=== PATIENT | male | born 1975 | race Caucasian/White ===

== ENCOUNTER 2017-01-27 13:53 | Emergency (ER) | payer MEDICAID ==
[~2017-01-27] VITALS: Ht 165.1 cm; Wt 90.3 kg
[2017-01-27 14:00] VITALS: BP 160/87
== END 2017-01-27 14:42 | disposition home or self-care (01) ==
LOC: ED 14:36
DX: M75.22 Bicipital tendinitis, left shoulder (principal); G89.11 Acute pain due to trauma; I10 Essential (primary) hypertension; E78.5 Hyperlipidemia, unspecified; X58.XXXA Exposure to other specified factors, initial encounter; Y93.89 Activity, other specified; Y92.89 Other specified places as the place of occurrence of the external cause; Y99.8 Other external cause status
CPT/HCPCS: 99283

== ENCOUNTER 2017-02-17 14:08 | Emergency (ER) | payer BC, MEDICAID ==
[~2017-02-17] VITALS: Ht 167.6 cm; Wt 84.0 kg
[2017-02-17 14:09] VITALS: BP 126/83
[2017-02-17] MEDS ORDERED: CELE100C PO (14:27)
[2017-02-17] MEDS ORDERED: CARISOPRODOL 350 MG TABLET PO SCH (15:00)
[2017-02-17] MEDS ORDERED: KETOROLAC 30 MG/1 ML IM ONE (15:00)
[2017-02-17] MEDS ORDERED: KETOROLAC 30 MG/1 ML ONE (15:07)
== END 2017-02-17 16:54 | disposition home or self-care (01) ==
LOC: ED 14:49
DX: M25.512 Pain in left shoulder (principal); M54.5 Low back pain; E78.5 Hyperlipidemia, unspecified; I10 Essential (primary) hypertension; W18.39XA Other fall on same level, initial encounter; Y93.89 Activity, other specified; Y99.8 Other external cause status; Y92.009 Unspecified place in unspecified non-institutional (private) residence as the place of occurrence of the external cause
CPT/HCPCS: 73030; 96372; 99284; J1885

== ENCOUNTER 2017-10-14 13:14 | Emergency (ER) | payer BC, MEDICAID ==
[~2017-10-14] VITALS: Ht 165.1 cm; Wt 92.7 kg
[~2017-10-14 13:14] MED LIST: CELE100C PO
[2017-10-14 13:16] VITALS: BP 143/87
[2017-10-14] MEDS ORDERED: IRBE1TAB37 PO (13:56)
[2017-10-14] MEDS ORDERED: MELO15TA24 PO (13:56)
[2017-10-14] MEDS ORDERED: HYDR-882 PO (13:56)
[2017-10-14] MEDS ORDERED: ATOR-2 PO (13:56)
[2017-10-14] MEDS ORDERED: DULO30CA2 PO (13:56)
[2017-10-14] MEDS ORDERED: GABA300C10 PO (13:56)
[2017-10-14] MEDS ORDERED: HYDROcodone/APAP 5/325 TABLET PO ONE ×2 (14:00→15:30)
[2017-10-14] MEDS ORDERED: HYDROcodone/APAP 5/325 TABLET ONE ×2 (14:07→15:02)
== END 2017-10-14 15:08 | disposition home or self-care (01) ==
LOC: ED 14:00
DX: S60.212A Contusion of left wrist, initial encounter (principal); E78.5 Hyperlipidemia, unspecified; I10 Essential (primary) hypertension; F17.210 Nicotine dependence, cigarettes, uncomplicated; W22.8XXA Striking against or struck by other objects, initial encounter; Y93.89 Activity, other specified; Y99.8 Other external cause status; Y92.89 Other specified places as the place of occurrence of the external cause
CPT/HCPCS: 29125; 99284

== ENCOUNTER 2020-03-05 12:32 | Outpatient (CLI) | payer BC, MEDICAID ==
[~2020-03-05 12:32] MED LIST changes: +ATOR-2 PO; +DULO30CA2 PO; +GABA300C10 PO; +HYDR-3653 PO; +IRBE1TAB37 PO; +MELO15TA24 PO
[2020-03-05] MEDS ORDERED: GADOTERATE 2.5 MMOL/5 ML VIAL ONE (15:00)
[2020-03-05] MEDS ORDERED: OMNIPAQUE 300 MG/ML, 10ML VIAL ONE (15:00)
[2020-03-05] MEDS ORDERED: ROPivacaine/PF 0.2%, 10 ML ONE (15:07)
[2020-03-05] MEDS ORDERED: LIDOCAINE-MPF 1%, 5ML ONE (15:07)
== END 2020-03-05 23:59 | disposition home or self-care (01) ==
LOC: RAD 12:32
PROVIDERS: ATTEND Orthopaedic Surgery
DX: S63.391A Traumatic rupture of other ligament of right wrist, initial encounter (principal); M25.532 Pain in left wrist; F17.210 Nicotine dependence, cigarettes, uncomplicated; X58.XXXA Exposure to other specified factors, initial encounter; Y93.89 Activity, other specified; Y92.89 Other specified places as the place of occurrence of the external cause; Y99.8 Other external cause status; Z79.899 Other long term (current) drug therapy
CPT/HCPCS: 25246; 73115; 73222; A9575; J2795; Q9967